=== PATIENT | female | born 1970 | race Caucasian/White ===

== ENCOUNTER 2018-11-13 21:03 | Emergency (ER) | payer BC ==
[~2018-11-13] VITALS: Ht 162.6 cm; Wt 68.5 kg
[2018-11-13 21:08] VITALS: BP_SYST 120
--- NOTE | 2018-11-13 21:10 | NUR ---
Patient to ER bed 3 to gown for evaluation. Side rails up. Report given to SETH SINGLETARY.
--- NOTE | 2018-11-13 21:15 | NUR ---
DELFINA Carroll at bedside examining patient.
--- NOTE | 2018-11-13 21:38 | NUR ---
Patient went to radiology in stable condition.
--- NOTE | 2018-11-13 22:31 | NUR ---
Patient given written and verbal discharge instructions and verbalizes understanding. ER MD discussed with patient the results and treatment provided. Patient in stable condition. ID arm band removed. Rx of MOTRIN given. Patient educated on pain management and to follow up with PMD. Pain Scale IBUPROFEN. Opportunity for questions provided and answered. Medication side effect fact sheet provided.
[2018-11-13 22:32] VITALS: BP_SYST 116
== END 2018-11-13 22:31 | disposition home or self-care (01) ==
LOC: SED 21:03
DX: S63.91XA Sprain of unspecified part of right wrist and hand, initial encounter (principal); Z88.0 Allergy status to penicillin; W01.0XXA Fall on same level from slipping, tripping and stumbling without subsequent striking against object, initial encounter; Y93.89 Activity, other specified; Y92.89 Other specified places as the place of occurrence of the external cause; Y99.8 Other external cause status
CPT/HCPCS: 99283